=== PATIENT | female | born 1985 | race Two or more races ===

== ENCOUNTER 2017-06-21 13:15 | Emergency (ER) | payer OTHER ==
[2017-06-21 13:22] VITALS: BP 99/45; PULSE 79; TEMP 98.7; BMI 24.1
--- NOTE | 2017-06-21 15:10 | PDOC ---
History of Present Illness - General Chief Complaint: Chest Pain Stated Complaint: CHEST PAIN Time Seen by Provider: 06/21/17 14:29 History Source: Patient Exam Limitations: No Limitations - History of Present Illness Initial Comments: 06/21/17 15:04 32 yr female with 4 days pain to the left side of her chest . no fever no chills. pt denies cough. no recent URI symptoms Pt denies any heavy lifting. Presenting Symptoms: Chest Pain Chest Pain Radiation: reports: no radiation Past History - Past Medical History Allergies/Adverse Reactions: Allergies Allergy/AdvReac Type Severity Reaction Status Date / Time No Known Allergies Allergy Verified 06/21/17 13:17 Home Medications: Ambulatory Orders Naproxen [Naprosyn -] 500 mg PO BID PRN #14 tablet 06/21/17 COPD: No - Surgical History Appendectomy: Yes - Suicide/Smoking/Psychosocial Hx Smoking History: Never smoked Have you smoked in the past 12 months: No Information on smoking cessation initiated: No Hx Alcohol Use: No Drug/Substance Use Hx: No Substance Use Type: None *Physical Exam - Vital Signs Last Vital Signs Temp Pulse Resp BP Pulse Ox 98.7 F 79 18 99/45 100 06/21/17 13:18 06/21/17 13:18 06/21/17 13:18 06/21/17 13:18 06/21/17 13:18 - Physical Exam General Appearance: Yes: Nourished, Appropriately Dressed HEENT: positive: EOMI, SUSAN, Normal ENT Inspection, TMs Normal, Pharynx Normal Neck: positive: Supple Respiratory/Chest: positive: Lungs Clear, Normal Breath Sounds. negative: Chest Tender Cardiovascular: positive: Regular Rhythm, Regular Rate. negative: Murmur Gastrointestinal/Abdominal: positive: Normal Bowel Sounds, Soft Musculoskeletal: positive: Normal Inspection. negative: CVA Tenderness Extremity: positive: Normal Capillary Refill, Normal Inspection, Normal Range of Motion Integumentary: positive: Normal Color, Dry, Warm Neurologic: positive: home care attendant II-XII NML intact, Fully Oriented, Alert, Normal Mood/ Affect, Normal Response, Motor Strength 5/5 ED Treatment Course - LABORATORY CBC & Chemistry Diagram: 06/21/17 15:24 06/21/17 17:30 - ADDITIONAL ORDERS Additional order review: Laboratory Results 06/21/17 06/21/17 06/21/17 17:30 16:43 15:24 D-Dimer 396 Sodium 140 Cancelled Potassium 3.9 Cancelled Chloride 108 H Cancelled Carbon Dioxide 22 Cancelled Anion Gap 10 Cancelled BUN 12 Cancelled Creatinine 0.7 Cancelled Creat Clearance w eGFR > 60 Cancelled Random Glucose 73 L Cancelled Calcium 8.9 Cancelled Total Bilirubin 0.4 Cancelled AST 16 Cancelled ALT Cancelled Alkaline Phosphatase 77 Cancelled Creatine Kinase 103 Cancelled Troponin I Cancelled Total Protein 7.8 Cancelled Albumin 4.1 Cancelled Urine HCG, Qual 06/21/17 06/21/17 15:24 15:10 D-Dimer Sodium Cancelled Potassium Cancelled Chloride Cancelled Carbon Dioxide Cancelled Anion Gap Cancelled BUN Cancelled Creatinine Cancelled Creat Clearance w eGFR Cancelled Random Glucose Cancelled Calcium Cancelled Total Bilirubin Cancelled AST Cancelled ALT Cancelled Alkaline Phosphatase Cancelled Creatine Kinase Cancelled Troponin I Cancelled Total Protein Cancelled Albumin Cancelled Urine HCG, Qual Negative 06/21/17 15:24 RBC 4.31 MCV 89.5 MCHC 33.3 RDW 12.7 MPV 9.3 - RADIOLOGY Radiology Studies Ordered: Category Date Time Status CHEST PA & LAT [RAD] Stat Radiology 06/21/17 16:23 Completed - Medications Given in the ED: ED Medications Discontinued Medications Generic Name Dose Route Start Last Admin Trade Name Freq PRN Reason Stop Dose Admin Ketorolac Tromethamine 60 mg 06/21/17 16:23 06/21/17 17:01 Toradol Injection - IM 06/21/17 16:24 Not Given ONCE ONE Ketorolac Tromethamine 30 mg 06/21/17 16:27 06/21/17 17:01 Toradol Injection - IVPB 06/21/17 16:28 30 mg ONCE ONE Administration Medical Decision Making - Medical Decision Making 06/21/17 16:59 cc: chest pain for 3 days comes and goes worse with movement not reproducable with touch will check labs , EKG CXR pt denies trauma no SOB no nausea no arm pain 06/21/17 18:52 pt improved after toradol, pt states no pain labs pending cmp will dc home with strict follow up with PMD pt and her agree naprosyn for pain *DC/Admit/Observation/Transfer Diagnosis at time of Disposition: Musculoskeletal chest pain - Discharge Dispostion Disposition: HOME Condition at time of disposition: Good - Prescriptions Prescriptions: Naproxen [Naprosyn -] 500 mg PO BID PRN #14 tablet PRN Reason: Pain - Referrals Referrals: Villa Rodriguez MD [Primary Care Provider] - - Patient Instructions Additional Instructions: drink pleanty of fluids warm compresses to the area of pain take naprosyn for pain as needed follow with your primary care doctor for follow up in 1-3 days no heavy lifting or bending return to ER for any worsening pain - Post Discharge Activity
[2017-06-21 15:58] LABS: HEMATOCRIT 38.6 % (32.4-45.2); HEMOGLOBIN 12.8 GM/dL (10.7-15.3); MCH 29.8 pg (25.7-33.7); MCHC 33.3 g/dl (32.0-36.0); MEAN CELL VOLUME 89.5 fl (80-96); MEAN PLT VOLUME 9.3 fl (7.5-11.1); PLATELET COUNT 310 K/MM3 (134-434); RBC 4.31 M/mm3 (3.60-5.2); RDW 12.7 % (11.6-15.6)
[2017-06-21] MEDS ORDERED: KETOROLAC TROMETHAMINE 60 MG/2 ML VIAL IM ONE (16:23)
[2017-06-21] MEDS ORDERED: KETOROLAC TROMETHAMINE 30 MG/1 ML VIAL ONE (16:27)
[2017-06-21] MEDS ORDERED: KETOROLAC TROMETHAMINE 30 MG/1 ML VIAL IVPB ONE (16:27)
--- NOTE | 2017-06-21 16:33 | EKG ---
Test Reason : Blood Pressure : / mmHG Vent. Rate : 072 BPM Atrial Rate : 072 BPM P-R Int : 124 ms QRS Dur : 074 ms QT Int : 428 ms P-R-T Axes : 081 065 061 degrees QTc Int : 468 ms NORMAL SINUS RHYTHM NORMAL ECG NO PREVIOUS ECGS AVAILABLE Confirmed by MD Mayte, Yair ([id number]) on 06/21/2017 4:33:13 PM Referred By: Confirmed By:Yair Hu MD
[2017-06-21 18:54] LABS: ALBUMIN 4.1 g/dl (3.4-5.0); ALK PHOS 77 U/L (45-117); ANION GAP 10 (8-16); BILIRUBIN,TOTAL 0.4 mg/dL (0.2-1.0); BLOOD UREA NITROGEN 12 mg/dL (7-18); CALCIUM 8.9 mg/dL (8.5-10.1); CHLORIDE 108 mmol/L (98-107); CO2 22 mmol/L (21-32); CREATININE 0.7 mg/dL (0.55-1.02); GLUCOSE,RANDOM 73 mg/dL (74-106); POTASSIUM 3.9 mmol/L (3.5-5.1); SGOT/AST 16 U/L (15-37); SODIUM 140 mmol/L (136-145); TOT PROT 7.8 g/dl (6.4-8.2)
[2017-06-21 19:12] LABS: SGPT/ALT 18 U/L (12-78)
== END 2017-06-21 19:23 | disposition home or self-care (01) ==
LOC: JERFT 13:15
PROC: 3E0333Z Introduction of Anti-inflammatory into Peripheral Vein, Percutaneous Approach (ICD-10-PCS; principal; 2017-06-21)
DX: R07.89 Other chest pain (principal)
CPT/HCPCS: 36415; 71046-TC-FY; 80053; 82550; 84484; 84703; 85027; 85379; 93005; 93010; 96374; 99282-25

== ENCOUNTER 2020-11-15 16:33 | Emergency (ER) | payer OTHER ==
[2020-11-15 16:41] VITALS: BP 98/60; PULSE 70; TEMP 97.9; BMI 24.6
[2020-11-15 18:18] LABS: BASO % 1.5 % (0-2.0); EOS % 3.7 % (0-4.5); HEMATOCRIT 35.5 % (32.4-45.2); HEMOGLOBIN 11.8 GM/dL (10.7-15.3); LYMPH % 46.5 % (8-40); MCH 29.7 pg (25.7-33.7); MCHC 33.3 g/dl (32.0-36.0); MEAN CELL VOLUME 89.1 fl (80-96); MEAN PLT VOLUME 8.7 fl (7.5-11.1); MONO % 10.3 % (3.8-10.2); PLATELET COUNT 312 10^3/uL (134-434); RBC 3.98 M/mm3 (3.60-5.2); RDW 12.8 % (11.6-15.6); WHITE BLOOD COUNT 4.7 K/mm3 (4.0-10.0)
[2020-11-15 18:35] LABS: INR 1.07 (0.83-1.09); PROTHROMBIN TIME (PATIENT) 12.9 SEC (9.7-13.0)
[2020-11-15 18:37] LABS: CHLORIDE 107 mmol/L (98-107); SODIUM 138 mmol/L (136-145)
[2020-11-15 18:39] LABS: CALCIUM 8.7 mg/dL (8.5-10.1)
[2020-11-15 18:40] LABS: ALBUMIN 3.6 g/dl (3.4-5.0); ANION GAP 7 MMOL/L (8-16); BLOOD UREA NITROGEN 10.1 mg/dL (7-18); CO2 24 mmol/L (21-32); GLUCOSE,RANDOM 79 mg/dL (74-106)
[2020-11-15 18:43] LABS: CREATININE 0.7 mg/dL (0.55-1.3); SGOT/AST 46 U/L (15-37); SGPT/ALT 20 U/L (13-61)
[2020-11-15 18:44] LABS: BILIRUBIN,TOTAL 0.3 mg/dL (0.2-1); TOT PROT 7.7 g/dl (6.4-8.2)
[2020-11-15 18:46] LABS: ALK PHOS 63 U/L (45-117)
[2020-11-15 18:48] LABS: HCG,QUALITATIVE URINE Negative
[2020-11-15 18:49] LABS: EPI CELLS >36 /uL (0-25.1); HYALINE CASTS 1 /uL (0-3.1); URINE APPEARANCE CLOUDY; URINE BACTERIA 2423 /uL (0-1359); URINE BILIRUBIN NEGATIVE (NEGATIVE); URINE COLOR YELLOW; URINE GLUCOSE (UA) NEGATIVE (NEGATIVE); URINE KETONE NEGATIVE (NEGATIVE); URINE LEUK ESTERASE 1+ (NEGATIVE); URINE NITRITE NEGATIVE (NEGATIVE); URINE PROTEIN NEGATIVE (NEGATIVE); URINE RBC 24 /uL (0-23.9); URINE WBC 57 /uL (0-25.8)
== END 2020-11-15 20:13 | disposition home or self-care (01) ==
LOC: JER 16:33
DX: R07.89 Other chest pain (principal)
CPT/HCPCS: 36415; 71046-TC-FY; 80053; 81003; 82550; 82553; 84484; 84703; 85025; 85610; 93005; 93010; 99284-25

== ENCOUNTER 2021-12-02 16:52 | Emergency (ER) | payer OTHER ==
[2021-12-02 17:15] VITALS: BP 99/64; PULSE 68; RESP 18; TEMP 98.1; BMI 25.0
[2021-12-02] MEDS ORDERED: METOCLOPRAMIDE HCL INJECTION 10 MG/2 ML VIAL IVPUSH ONE (18:09)
[2021-12-02] MEDS ORDERED: SODIUM CHLORIDE 0.9% 500 ML INFUS.BAG IV ONE (18:09)
[2021-12-02] MEDS ORDERED: KETOROLAC TROMETHAMINE 30 MG/1 ML VIAL IVPB ONE (18:10)
[2021-12-02] MEDS ORDERED: METOCLOPRAMIDE HCL INJECTION 10 MG/2 ML VIAL ONE (18:13)
[2021-12-02] MEDS ORDERED: KETOROLAC TROMETHAMINE 30 MG/1 ML VIAL ONE (18:14)
[2021-12-02 19:27] LABS: BASO % 1.2 % (0-2.0); EOS % 2.9 % (0-4.5); HEMATOCRIT 39.7 % (32.4-45.2); HEMOGLOBIN 13.4 GM/dL (10.7-15.3); MCH 30.7 pg (25.7-33.7); MCHC 33.8 g/dl (32.0-36.0); MEAN CELL VOLUME 90.8 fl (80-96); MEAN PLT VOLUME 8.7 fl (7.5-11.1); MONO % 8.6 % (3.8-10.2); NEUT % 45.3 % (42.8-82.8); PLATELET COUNT 356 10^3/uL (134-434); RBC 4.37 M/mm3 (3.60-5.2); RDW 13.2 % (11.6-15.6); WHITE BLOOD COUNT 4.4 K/mm3 (4.0-10.0)
[2021-12-02 19:30] LABS: URINE APPEARANCE CLEAR; URINE BILIRUBIN NEGATIVE (NEGATIVE); URINE COLOR YELLOW; URINE GLUCOSE (UA) NEGATIVE (NEGATIVE); URINE KETONE NEGATIVE (NEGATIVE); URINE LEUK ESTERASE NEGATIVE (NEGATIVE); URINE NITRITE NEGATIVE (NEGATIVE); URINE PROTEIN NEGATIVE (NEGATIVE); URINE UROBILINOGEN 0.2 mg/dL (0.2-1.0)
[2021-12-02 19:33] LABS: HCG,QUALITATIVE URINE Negative
[2021-12-02 20:06] LABS: ALBUMIN 3.6 g/dl (3.4-5.0); CALCIUM 8.9 mg/dL (8.5-10.1)
[2021-12-02 20:07] LABS: BLOOD UREA NITROGEN 11.1 mg/dL (7-18)
[2021-12-02 20:09] LABS: CREATININE 0.8 mg/dL (0.55-1.3)
[2021-12-02 20:11] LABS: BILIRUBIN,TOTAL 0.3 mg/dL (0.2-1); TOT PROT 7.8 g/dl (6.4-8.2)
== END 2021-12-02 20:41 | disposition home or self-care (01) ==
LOC: JER 16:52
PROC: 3E033GC Introduction of Other Therapeutic Substance into Peripheral Vein, Percutaneous Approach (ICD-10-PCS; principal; 2021-12-02)
DX: R51.9 Headache, unspecified (principal)
CPT/HCPCS: 36415; 80053; 81003; 84703; 85025; 87086; 99284-25

== ENCOUNTER 2022-06-29 18:50 | Emergency (ER) | payer OTHER ==
[2022-06-29 19:03] VITALS: BP 111/70; PULSE 79; RESP 16; TEMP 97.5; BMI 25.0
[2022-06-29] MEDS ORDERED: IBUPROFEN 400 MG TABLET (FP) PO ONE ×2 (20:30→20:33)
[2022-06-29 21:01] LABS: BASO % 0.8 % (0-2.0); EOS % 2.5 % (0-4.5); HEMATOCRIT 37.3 % (32.4-45.2); HEMOGLOBIN 12.5 GM/dL (10.7-15.3); LYMPH % 43.2 % (8-40); MCHC 33.6 g/dl (32.0-36.0); MEAN CELL VOLUME 92.3 fl (80-96); MEAN PLT VOLUME 8.8 fl (7.5-11.1); NEUT % 45.5 % (42.8-82.8); PLATELET COUNT 306 10^3/uL (134-434); RBC 4.04 M/mm3 (3.60-5.2); RDW 12.4 % (11.6-15.6); WHITE BLOOD COUNT 5.5 K/mm3 (4.0-10.0)
[2022-06-29 21:25] LABS: CHLORIDE 108 mmol/L (98-107); SODIUM 138 mmol/L (136-145)
[2022-06-29 21:27] LABS: CALCIUM 9.3 mg/dL (8.5-10.1)
[2022-06-29 21:28] LABS: ANION GAP 5 MMOL/L (8-16); BLOOD UREA NITROGEN 16.6 mg/dL (7-18); CO2 25 mmol/L (21-32); GLUCOSE,RANDOM 85 mg/dL (74-106)
[2022-06-29 21:31] LABS: CREATININE 0.7 mg/dL (0.55-1.3); SGOT/AST 18 U/L (15-37); SGPT/ALT 23 U/L (13-61)
[2022-06-29 21:32] LABS: BILIRUBIN,TOTAL 0.2 mg/dL (0.2-1)
[2022-06-29 21:33] LABS: TOT PROT 7.9 g/dl (6.4-8.2)
[2022-06-29 21:34] LABS: ALK PHOS 67 U/L (45-117)
== END 2022-06-29 23:00 | disposition home or self-care (01) ==
LOC: JER 18:50
DX: R07.9 Chest pain, unspecified (principal)
CPT/HCPCS: 36415; 71045-TC-FY; 80053; 84484; 85025; 93005; 93010; 99285-25

== ENCOUNTER 2023-11-22 14:04 | Emergency (ER) | payer OTHER ==
[2023-11-22 14:10] VITALS: BP 111/60; PULSE 72; RESP 20; TEMP 98.4; BMI 25.8
[2023-11-22 15:49] LABS: HEMATOCRIT 35.4 % (32.4-45.2); LYMPH % 32.5 % (8-40); MCH 30.3 pg (25.7-33.7); MEAN CELL VOLUME 89.3 fl (80-96); MEAN PLT VOLUME 8.3 fl (7.5-11.1); MONO % 10.6 % (3.8-10.2); NEUT % 53.9 % (42.8-82.8); PLATELET COUNT 314 10^3/uL (134-434); RBC 3.96 M/mm3 (3.60-5.2); RDW 12.9 % (11.6-15.6); WHITE BLOOD COUNT 4.6 K/mm3 (4.0-10.0)
[2023-11-22 15:53] LABS: EPI CELLS 4 /uL (0-25.1); HYALINE CASTS 0 /uL (0-3.1); PH,URINE 6.5 (5.0-8.0); URINE APPEARANCE CLEAR; URINE BACTERIA 184 /uL (0-1359); URINE BILIRUBIN NEGATIVE (NEGATIVE); URINE COLOR YELLOW; URINE GLUCOSE (UA) NEGATIVE (NEGATIVE); URINE KETONE NEGATIVE (NEGATIVE); URINE LEUK ESTERASE NEGATIVE (NEGATIVE); URINE NITRITE NEGATIVE (NEGATIVE); URINE PROTEIN NEGATIVE (NEGATIVE); URINE RBC 28 /uL (0-23.9); URINE UROBILINOGEN 0.2 mg/dL (0.2-1.0); URINE WBC 1 /uL (0-25.8)
[2023-11-22 16:09] LABS: CALCIUM 9.1 mg/dL (8.5-10.1)
[2023-11-22 16:10] LABS: ALBUMIN 3.6 g/dl (3.4-5.0); BLOOD UREA NITROGEN 8.9 mg/dL (7-18)
[2023-11-22 16:13] LABS: CREATININE 0.7 mg/dL (0.55-1.3)
[2023-11-22 16:15] LABS: BILIRUBIN,TOTAL 0.3 mg/dL (0.2-1); TOT PROT 7.4 g/dl (6.4-8.2)
[2023-11-22 17:25] LABS: YEAST NONE SEEN (NEGATIVE)
== END 2023-11-22 21:59 | disposition home or self-care (01) ==
LOC: JER 14:04
DX: O02.1 Missed abortion (principal)
CPT/HCPCS: 36415; 76817-TC; 80053; 81003; 84702; 85025; 86850; 86900; 86901; 87086; 99284-25

== ENCOUNTER 2023-11-24 16:01 | Emergency (ER) | payer OTHER ==
[2023-11-24 16:06] VITALS: BP 100/64; PULSE 79; RESP 18; TEMP 98.6; BMI 27.7
[2023-11-24 17:13] LABS: BASO % 0.5 % (0-2.0); EOS % 1.6 % (0-4.5); HEMATOCRIT 36.8 % (32.4-45.2); HEMOGLOBIN 12.4 GM/dL (10.7-15.3); LYMPH % 18.4 % (8-40); MCH 30.1 pg (25.7-33.7); MCHC 33.7 g/dl (32.0-36.0); MEAN CELL VOLUME 89.2 fl (80-96); MEAN PLT VOLUME 8.1 fl (7.5-11.1); NEUT % 71.5 % (42.8-82.8); PLATELET COUNT 307 10^3/uL (134-434); RBC 4.13 M/mm3 (3.60-5.2); RDW 12.5 % (11.6-15.6)
[2023-11-24 17:37] LABS: ALBUMIN 3.8 g/dl (3.4-5.0); BLOOD UREA NITROGEN 8.4 mg/dL (7-18); CALCIUM 9.3 mg/dL (8.5-10.1)
[2023-11-24 17:41] LABS: CREATININE 0.8 mg/dL (0.55-1.3)
[2023-11-24 17:42] LABS: BILIRUBIN,TOTAL 0.3 mg/dL (0.2-1); TOT PROT 7.3 g/dl (6.4-8.2)
[2023-11-24 17:58] LABS: EPI CELLS 3 /uL (0-25.1); HYALINE CASTS 0 /uL (0-3.1); URINE APPEARANCE CLEAR; URINE BACTERIA 10 /uL (0-1359); URINE BILIRUBIN NEGATIVE (NEGATIVE); URINE COLOR YELLOW; URINE GLUCOSE (UA) NEGATIVE (NEGATIVE); URINE KETONE NEGATIVE (NEGATIVE); URINE LEUK ESTERASE TRACE (NEGATIVE); URINE NITRITE NEGATIVE (NEGATIVE); URINE PROTEIN NEGATIVE (NEGATIVE); URINE RBC 4454 /uL (0-23.9); URINE UROBILINOGEN 0.2 mg/dL (0.2-1.0); URINE WBC 17 /uL (0-25.8)
== END 2023-11-24 19:08 | disposition home or self-care (01) ==
LOC: JER 16:01
DX: O03.4 Incomplete spontaneous abortion without complication (principal)
CPT/HCPCS: 36415; 76817-TC; 80053; 81003; 84702; 85025; 86850; 86900; 86901; 87086; 99284-25